=== PATIENT | male | born 1990 | race Caucasian/White ===

== ENCOUNTER 2019-01-10 23:26 | Inpatient (IN) | payer BC ==
[~2019-01-10] VITALS: Ht 180.3 cm; Wt 82.3 kg
[2019-01-11] VITALS (10 sets, daily range): BP systolic 117–158; BP diastolic 51–87; PULSE 64–106; TEMP 97.5–98.8
[2019-01-11 00:22] LABS: BASO # 0.1 (0.0-0.2); BASO % 0.9 % (0.0-2.0); EOS # 0.2 (0.0-0.7); EOS % 3.6 % (0-4.0); GRAN # 3.2 (1.4-6.5); GRAN % 57.4 % (42.2-75.2); HEMATOCRIT 44.8 % (42.0-52.0); HEMOGLOBIN 15.2 g/dl (13.5-18.0); LYMPH # 1.5 (1.2-3.4); LYMPH % 27.4 % (20.0-51.0); MEAN CELL VOLUME 96 fl (80.0-100.0); MEAN CORPUSCULAR HEMOGLOBIN 32 pg (27.0-31.0); MEAN CORPUSCULAR HGB CONC 34 g/dl (33.0-37.0); MEAN PLATELET VOLUME 11.5 fl (7.4-10.4); MONO # 0.6 (0.1-0.6); MONO % 10.3 % (1.7-9.3); PLATELET COUNT 133 K/mm3 (130-400); RED BLOOD COUNT 4.69 M/mm3 (4.20-5.60); REDCELL DISTRIBUTION WIDTH-CV 12.6 % (11.5-14.5)
[2019-01-11 00:35] LABS: ALANINE AMINOTRANSFERASE 340 U/L (21-72); ALBUMIN 4.6 gm/dL (3.5-5.0); ALKALINE PHOSPHATASE 115 U/L (50-136); ANION GAP 15 mmol/L (7-16); AST,SGOT 549 U/L (15-37); BILIRUBIN,TOTAL 0.7 mg/dL (0.0-1.0); BLOOD UREA NITROGEN 10 mg/dL (9-20); CALCIUM 9.3 mg/dL (8.4-10.2); CARBON DIOXIDE 26 mmol/L (22-30); CHLORIDE 107 mmol/L (98-107); GLUCOSE 103 mg/dL (74-106); POTASSIUM 3.6 mmol/L (3.4-5.0); SODIUM 148 mmol/L (137-145); TOTAL PROTEIN 8.5 gm/dL (6.4-8.2)
[2019-01-11 00:36] LABS: C-REACTIVE PROTEIN < 0.5 mg/dL (0.0-0.9)
[2019-01-11 00:39] LABS: LIPASE 2990 U/L (23-300)
[2019-01-11 00:46] LABS: ACETAMINOPHEN < 10 ug/mL (10-30); SALICYLATE < 1.0 mg/dL
[2019-01-11 00:54] LABS: ALCOHOL(ethanol),MEDICAL 360 mg/dL
[2019-01-11 01:53] LABS: MAGNESIUM 1.8 mg/dL (1.6-2.3); PHOSPHOROUS 4.1 mg/dL (2.5-4.5)
[2019-01-11 02:21] LABS: PROTHROMBIN TIME 11.2 SECONDS (9.7-12.8)
--- NOTE | 2019-01-11 02:25 | NUR ---
PT ARRIVED TO UNIT. PAIN 6/10- PRN MEDS WILL BE GIVEN. REPORTS NO NEEDS AT THIS TIME. ORIENTED TO MEDICAL FLOOR, ROOM, AND STAFF.
[2019-01-11 06:03] LABS: BASO % 0.5 % (0.0-2.0); EOS # 0.2 (0.0-0.7); EOS % 2.3 % (0-4.0); GRAN % 61.5 % (42.2-75.2); HEMATOCRIT 43.8 % (42.0-52.0); HEMOGLOBIN 14.6 g/dl (13.5-18.0); LYMPH # 1.7 (1.2-3.4); LYMPH % 25.8 % (20.0-51.0); MEAN CELL VOLUME 97 fl (80.0-100.0); MEAN CORPUSCULAR HEMOGLOBIN 32 pg (27.0-31.0); MEAN CORPUSCULAR HGB CONC 33 g/dl (33.0-37.0); MEAN PLATELET VOLUME 11.1 fl (7.4-10.4); MONO # 0.6 (0.1-0.6); MONO % 9.4 % (1.7-9.3); PLATELET COUNT 118 K/mm3 (130-400); RED BLOOD COUNT 4.53 M/mm3 (4.20-5.60); REDCELL DISTRIBUTION WIDTH-CV 12.7 % (11.5-14.5)
[2019-01-11 06:15] LABS: ALBUMIN 4.1 gm/dL (3.5-5.0); BILIRUBIN,TOTAL 0.7 mg/dL (0.0-1.0); CALCIUM 8.6 mg/dL (8.4-10.2); CREATININE, serum 0.69 (0.66-1.25); POTASSIUM 3.8 mmol/L (3.4-5.0); TOTAL PROTEIN 7.5 gm/dL (6.4-8.2)
--- NOTE | 2019-01-11 06:30 | NUR ---
pt had an uneventful night. reports 7/10 pain in abd. prn meds given. detox score-1. pt slept throughout night in chair. refused to get into bed for weight. iv has no redness, no swelling. no needs at this time. call light in reach
--- NOTE | 2019-01-11 07:20 | NUR ---
report given to ANIKET Love. pt sleeping
--- NOTE | 2019-01-11 08:08 | NUR ---
Pt assessment complete. Pt is sitting up in the chair upon entry, friend at bedside. Pt is A/O x3. His breathing is even and unlabored on RA. Pt denies SOB. Pt currently reports abdominal pain 03/11, PRN pain medication administered. Pt denies N/V, but asking for ice water. POC discussed with patient who verbalizes understanding. IVF infusing without complications. Pt denies further needs at this time. Call light within reach.
--- NOTE | 2019-01-11 11:20 | NUR ---
Plan: Patient reports wanting to return home locally but also resides in [facility]. Assess: SW met with patient about DC plan and JUSTO concerns. Pt rports that he lives between [place] and [facility]. Patient indicated that he has been to inpatient and to outpatient and believes patrice steinberg works. Patient inidicated that he also does not like AA. Client states that he rather deal with his JUSTO on his own. Patient reports EMR contact is his mother Tosha . Patient indicated that his family is supportive but he continues to have bouts of JUSTO use. Patient denies any use of DME. Patient's PCP is Dr. Brooke out of [facility]. Patient uses [facility] for RX locally. Action: Patient was offered services for [facility], and inp and out. Patient declines. SW will continue to follow for services.
--- NOTE | 2019-01-11 18:44 | NUR ---
Pt continued to report abdominal pain unrelieved with pain medications. This was relayed to REVA Huang. Dose increased. Pt has occasional nausea, he has been taking sips and eating ice chips. Tremors intermittently visualized. One dose of PRN Ativan administered. Isolation precautions in place. Call light within reach.
--- NOTE | 2019-01-11 21:15 | NUR ---
PT RESTING IN BED a+ox4. REPORTS 7/10 PAIN IN ABD- PRN MEDS GIVEN. SHIFT ASSESSMENT COMPLETE. NO CONCERNS. DETOX SCORE- 1-3. IV FLUSHES WELL, NO REDNESS, NO SWELLING. IV FLUIDS RUNNING AT 150 ML/HR. NO NEEDS AT THIS TIME. CALL LIGHT IN REACH
[2019-01-12] VITALS (11 sets, daily range): BP systolic 122–143; BP diastolic 62–94; PULSE 74–104; TEMP 97.8–100.2
--- NOTE | 2019-01-12 04:25 | NUR ---
PT SCORED A 6 ON DETOX SCALE- 1 MG ATIVAN GIVEN. PT HAS NOT SLEPT DURING NIGHT. REPORTS PAIN TO BE MANAGABLE RIGHT NOW, AND DOES NOT WANT ANY PAIN MEDS AT THIS TIME. CALL LIGHT IN REACH. URINAL IN ROOM, WAITING FOR URINE SAMPLE
--- NOTE | 2019-01-12 05:06 | NUR ---
PT HAD AN UNEVENTFUL NIGHT. REPORTED ABD PAIN 5-7/10, GAVE PRN PAIN MEDS WHEN REQUESTED. PT HAS SCORED A 4-6 ON DETOX SCALE- ATIVAN GIVEN PRESCIBED. IV FLUSHES WELL, NO REDNESS, NO SWELLING. PT REPORTS "THERE IS A SPARK BEHIND ME, IT HIT ME ONCE" THIS NURSE ASSESS LOCATION AND DID NOT SEE ANYTHING, PT REPORTED HE WILL CALL IF HAPPENS AGAIN. PT VSS. PT RESTING IN BED DURING NIGHT WATCHING TV. PT DID NOT SLEEP DURING NIGHT. NO NEEDS A TTHIS TIME. CALL LIGHT IN REACH.
[2019-01-12 06:13] LABS: COLLECTION METHOD CLEAN CATCH
[2019-01-12 06:28] LABS: TRICYCLIC ANTIDEPRESS URINE NEGATIVE
[2019-01-12 06:40] LABS: MUCOUS Present /lpf; PH 6 (5-8); SQUAMOUS EPITHELIAL 0-2 /hpf; URINE APPEARANCE Clear; URINE BACTERIA None Seen /hpf; URINE BILIRUBIN Negative (NEGATIVE); URINE BLOOD Negative (NEGATIVE); URINE COLOR Amber; URINE GLUCOSE Negative (NEGATIVE); URINE KETONE 2+ (NEGATIVE); URINE LEUKOCYTE ESTERASE Negative (NEGATIVE); URINE NITRATE Negative (NEGATIVE); URINE PROTEIN(semi-quant) 1+ (NEGATIVE); URINE UROBILINOGEN >=4.0 mg/dL (NEGATIVE)
--- NOTE | 2019-01-12 07:05 | NUR ---
REPORT GIVEN TO ANIKET CHAHAL. PT REPORTS NO NEEDS
[2019-01-12 07:48] LABS: BASO % 0.3 % (0.0-2.0); EOS # 0.1 (0.0-0.7); EOS % 1.7 % (0-4.0); GRAN # 4.9 (1.4-6.5); GRAN % 73.5 % (42.2-75.2); HEMOGLOBIN 14.2 g/dl (13.5-18.0); LYMPH # 0.7 (1.2-3.4); LYMPH % 10.9 % (20.0-51.0); MEAN CELL VOLUME 95 fl (80.0-100.0); MEAN CORPUSCULAR HEMOGLOBIN 32 pg (27.0-31.0); MEAN CORPUSCULAR HGB CONC 34 g/dl (33.0-37.0); MEAN PLATELET VOLUME 11.7 fl (7.4-10.4); MONO # 0.9 (0.1-0.6); PLATELET COUNT 84 K/mm3 (130-400); RED BLOOD COUNT 4.42 M/mm3 (4.20-5.60); REDCELL DISTRIBUTION WIDTH-CV 11.9 % (11.5-14.5)
[2019-01-12 08:12] LABS: ALBUMIN 3.6 gm/dL (3.5-5.0); BILIRUBIN,TOTAL 1.4 mg/dL (0.0-1.0); CALCIUM 8.6 mg/dL (8.4-10.2); CREATININE, serum 0.58 (0.66-1.25); POTASSIUM 3.8 mmol/L (3.4-5.0); TOTAL PROTEIN 6.8 gm/dL (6.4-8.2)
--- NOTE | 2019-01-12 08:31 | NUR ---
Pt assessment complete. Pt is laying in bed upon entry, he is A/O x3. His breathing is even and unlabored on RA. Pt denies SOB. Pt currently reports abodminal pain 11/09, refuses pain medication at this time. No N/V. Pt requesting when he can eat, POC discussed with patient who verbalizes understanding. No dizziness reported. Pt does report some hallucinations but reports "when I close my eyes, I think I'm at home and want to go out and smoke". Nicotene patch placed to L deltoid. IVF infusing without complications. PRN Ativan administered per protocol. No further needs, call light within reach.
--- NOTE | 2019-01-12 15:29 | NUR ---
Pt tolerated clear liquids without increased pain or N/V.
--- NOTE | 2019-01-12 19:28 | NUR ---
Pt had a good day. Decreased pain, requiring no pain meds. Intermittent Ativan given per [facility] protocol. Tolerated clear liquids wihtout N/V. Call light within reach.
--- NOTE | 2019-01-12 20:00 | NUR ---
PT IN THE BATHROOM AND HAD DIARRHEA- COVERING LEG AND TOILET SEAT. PT ANXIOUS AND REPORTS FEELING EMBARRESED- TELE CALLED AT THIS TIME- HEART RATE IN 130-140S. PT ASKED TO SIT ON BED AND RELAX- HEART RATE DECREASED TO 120S WITHIN 3-5 MINS. 10 MINS LATER- HEART RATE IN 90S. PT REQUESTED A SHOWER, IV WRAPPED. LINENS CHANGED AT THIS TIME. 1 MG ATIVAN GIVEN PER DETOX SCALE. IV FLUSHES WELL, NO SWELLING, NO REDNESS. PT PLACES BACK ON TELE AFTER SHOWER AND IV FLUIDS CONTINUED AT 150 ML/ HR. NO PAIN REPORTED. NO NEEDS AT THIS TIME, CALL LIGHT IN REACH.
[2019-01-13] VITALS (7 sets, daily range): BP systolic 122–141; BP diastolic 74–91; PULSE 74–80; TEMP 98.3–99.3
--- NOTE | 2019-01-13 04:58 | NUR ---
pt resting in bed- score 4 on detox scale- recheck bp and now in normals limits. pt reports "i am going home today if doctor lets me or not. 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
--- NOTE | 2019-01-13 05:19 | NUR ---
pt had an uneventful night. reports minimal pain during night. ativan given througout night per protocol. iv fluids running at 150ml/hr, no swelling no redness, flushes well. pt showered this evening. pt heart rate increased to 140 when he became anxious and embaressed about diarrhea. heart rate decreased once cleaned up. no needs at this time. call light in reach
--- NOTE | 2019-01-13 07:27 | NUR ---
REPORT GIVEN TO ANIKET LOPEZ.
[2019-01-13 07:55] LABS: BASO % 0.5 % (0.0-2.0); EOS # 0.2 (0.0-0.7); EOS % 5.2 % (0-4.0); GRAN # 2.6 (1.4-6.5); GRAN % 62.6 % (42.2-75.2); HEMATOCRIT 39.1 % (42.0-52.0); HEMOGLOBIN 13.2 g/dl (13.5-18.0); LYMPH # 0.7 (1.2-3.4); LYMPH % 16.9 % (20.0-51.0); MEAN CELL VOLUME 96 fl (80.0-100.0); MEAN CORPUSCULAR HEMOGLOBIN 32 pg (27.0-31.0); MEAN CORPUSCULAR HGB CONC 34 g/dl (33.0-37.0); MEAN PLATELET VOLUME 12.1 fl (7.4-10.4); MONO # 0.6 (0.1-0.6); MONO % 14.3 % (1.7-9.3); PLATELET COUNT 79 K/mm3 (130-400); RED BLOOD COUNT 4.08 M/mm3 (4.20-5.60); REDCELL DISTRIBUTION WIDTH-CV 12.2 % (11.5-14.5)
[2019-01-13 08:06] LABS: ALBUMIN 3.4 gm/dL (3.5-5.0); BILIRUBIN,TOTAL 1.1 mg/dL (0.0-1.0); CALCIUM 8.9 mg/dL (8.4-10.2); CREATININE, serum 0.57 (0.66-1.25); POTASSIUM 3.7 mmol/L (3.4-5.0); TOTAL PROTEIN 6.5 gm/dL (6.4-8.2)
--- NOTE | 2019-01-13 08:42 | NUR ---
Pt alert and oriented. Pt took shower this am. Pt denies SOB and rates pain 1/10 d/t hunger pains in abdomen per pt. Pt wants to leave as soon as possible he states he has to be in [place] tomorrow and will leave no matter what. Pt educated and will wait for hospitalist to make their rounds this am. Pt has call light in reach and telemetry in place. IV no redness or infiltration noted.
[2019-01-13] MEDS ORDERED: DESYREL 50MG50 MG PO (10:10)
[2019-01-13] MEDS ORDERED: PRISTIQ 50 MG T50 MG PO (10:10)
--- NOTE | 2019-01-13 10:40 | NUR ---
Pt given discharge instructions and education on new medications and smoking and alcohol cessation. Pt denies questions or needs and is really ready to leave now. Pt IV discontinued and no redness or infiltration noted. Pressure dressing applied. Pt friend here to take him home. Pt refuses to be escorted out and wants to walk down to cafeteria with friend to get something to eat. Pt has all belongings and has all discharge information.
--- NOTE | 2019-01-13 10:56 | NUR ---
SW attended clinical rounds. The patient is to discharge back home today, 01/13. The hospitalist discussed the importance of abstaining from alcohol. The patient states that his mother is an addiction counselor. He had no other questions or concerns. No additional needs at this time.
== END 2019-01-13 10:40 | disposition home or self-care (01) | DRG 439 ==
LOC: COL.ER 23:26 → MEDICAL 01-11 01:02
PROVIDERS: Emergency Medicine; Nurse Practitioner Family; Physician Assistant; ADMIT Hospitalist
DX: K85.90 Acute pancreatitis without necrosis or infection, unspecified (principal); E87.0 Hyperosmolality and hypernatremia; K70.10 Alcoholic hepatitis without ascites; F32.9 Major depressive disorder, single episode, unspecified; F17.210 Nicotine dependence, cigarettes, uncomplicated; F10.129 Alcohol abuse with intoxication, unspecified; R74.0 Nonspecific elevation of levels of transaminase and lactic acid dehydrogenase [LDH]; Y90.8 Blood alcohol level of 240 mg/100 ml or more; K21.9 Gastro-esophageal reflux disease without esophagitis; F41.1 Generalized anxiety disorder; G47.00 Insomnia, unspecified; Z91.14 Patient's other noncompliance with medication regimen
CPT/HCPCS: 99222-AI; 99232-AI; 99239; C9113; J1170; J1650; J2060; J2270; J2405; J2550; J3475; J7030; Q9967